=== PATIENT | female | born 1995 | race American Indian/Alaskan Native ===

== ENCOUNTER 2017-05-09 15:14 | Emergency (ER) | payer OTHER ==
[2017-05-09 15:41] VITALS: BP 119/78; PULSE 73; RESP 16; TEMP 98.9; O2SAT 100
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
== END 2017-05-09 17:50 | disposition home or self-care (01) ==
LOC: MERGE 15:14 → ED 15:14
DX: M25.561 Pain in right knee (principal); M25.522 Pain in left elbow
CPT/HCPCS: 73080; 73562; 81025; 96372; 99284; J1885

== ENCOUNTER 2018-10-17 21:31 | Emergency (ER) | payer SELFPAY ==
[2018-10-17 21:40] VITALS: BMI 28.1
[2018-10-17 21:41] VITALS: O2SAT 100
--- NOTE | 2018-10-17 21:47 | ED PDOC ---
Arrival/HPI - General Chief Complaint: Female Genitourinary Time Seen by Provider: 10/17/18 21:33 Historian: Patient - History of Present Illness Narrative History of Present Illness (Text): 10/17/18 21:46 Regina Gaitan is a 23 year old female, whose past medical history includes ovarian cysts, who presents to the emergency department complaining of vaginal discharge. 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 Patient states she is still experiencing whitish vaginal disharge but denies any dysuria, vaginal bleeding, abdominal pain, nausea, vomiting, or any other complaints. Symptom Onset: Gradual Symptom Course: Unchanged Activities at Onset: Light Context: Home Past Medical History - Provider Review Nursing Documentation Reviewed: Yes - Infectious Disease Hx of Infectious Diseases: None - Genitourinary/Gynecological Other/Comment: yeast infection - Psychiatric Hx Psychophysiologic Disorder: No Hx Substance Use: No Family/Social History - Physician Review Nursing Documentation Reviewed: Yes Family/Social History: Unknown Family HX Smoking Status: Never Smoked Hx Alcohol Use: No Hx Substance Use: No Allergies/Home Meds Allergies/Adverse Reactions: Allergies No Known Allergies Allergy (Verified 05/09/17 15:38) Review of Systems - Physician Review All systems were reviewed & negative as marked: Yes - Review of Systems Constitutional: Normal. absent: Fevers Eyes: Normal ENT: Normal Respiratory: Normal. absent: SOB, Cough Cardiovascular: Normal. absent: Chest Pain Gastrointestinal: Normal. absent: Abdominal Pain, Diarrhea, Nausea, Vomiting Genitourinary Female: Vaginal Discharge (+white vaginal discharge) Musculoskeletal: Normal Skin: Normal Neurological: Normal Endocrine: Normal Hemo/Lymphatic: Normal Psychiatric: Normal Physical Exam Vital Signs Reviewed: Yes Vital Signs Temp Pulse Resp BP Pulse Ox 10/17/18 21:40 99.3 F 81 18 114/78 100 Temperature: Afebrile Blood Pressure: Normal Pulse: Regular Respiratory Rate: Normal Appearance: Positive for: Well-Appearing, Non-Toxic, Comfortable Pain Distress: None Mental Status: Positive for: Alert and Oriented X 3 - Systems Exam Head: Present: Atraumatic, Normocephalic Pupils: Present: PERRL Extroacular Muscles: Present: EOMI Conjunctiva: Present: Normal Mouth: Present: Moist Mucous Membranes Neck: Present: Normal Range of Motion Respiratory/Chest: Present: Clear to Auscultation, Good Air Exchange. No: Respiratory Distress, Accessory Muscle Use Cardiovascular: Present: Regular Rate and Rhythm, Normal S1, S2. 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 No: Adenexal Tenderness, Cervical Motion Tendernes Back: Present: Normal Inspection Upper Extremity: Present: Normal Inspection. No: Cyanosis, Edema Lower Extremity: Present: Normal Inspection. No: Edema Neurological: Present: GCS=15, CN II-XII Intact, Speech Normal Skin: Present: Warm, Dry, Normal Color. No: Rashes Psychiatric: Present: Alert, Oriented x 3, Normal Insight, Normal Concentration Medical Decision Making ED Course and Treatment: 10/17/18 21:46 Impression: 23 year old female complaining of white vaginal discharge. Plan: -- Diflucan -- Reassess and disposition Progress Notes: - Scribe Statement The provider has reviewed the documentation as recorded by the Scribporfirio Belcher All medical record entries made by the Scribe were at my direction and personally dictated by me. I have reviewed the chart and agree that the record accurately reflects my personal performance of the history, physical exam, medical decision making, and the department course for this patient. I have also personally directed, reviewed, and agree with the discharge instructions and disposition. Disposition/Present on Arrival - Present on Arrival Any Indicators Present on Arrival: No History of DVT/PE: No History of Uncontrolled Diabetes: No Urinary Catheter: No History of Decub. Ulcer: No History Surgical Site Infection Following: None - Disposition Have Diagnosis and Disposition been Completed?: Yes Diagnosis: Vulvovaginal candidiasis Disposition: HOME/ ROUTINE Disposition Time: 22:02 Condition: GOOD Additional Instructions: Follow up with your finish grinder this week Referrals: Justen Miranda [Primary Care Provider] - Follow up with primary Forms: [employer] (E[place]ian), WORK NOTE
[2018-10-17 22:21] VITALS: BP 117/68; PULSE 78; RESP 17; TEMP 99.1
== END 2018-10-17 22:21 | disposition home or self-care (01) ==
LOC: ED 21:31
DX: B37.3 Candidiasis of vulva and vagina (principal)